=== PATIENT | female | born 1960 | race Caucasian/White ===

== ENCOUNTER 2024-04-27 09:55 | Day surgery (SDC) | payer OTHER ==
[2024-04-24 11:29] LABS: Absolute Basophils 0.1 K/uL (0-0.5); Absolute Eosinophils 0.2 K/uL (0-0.5); Absolute Lymphocytes (CBC) 1.7 K/uL (0.7-4.9); Absolute Monocytes 0.4 K/uL (0.1-1.3); Absolute Neutrophil 2.4 K/uL (1.8-8.0); Basophils % 1.2 % (0-1.3); Hematocrit 43.6 % (36.0-45.0); Lymphocytes % 35.6 % (15.3-44.8); MCH 27.8 pg (27.0-35.0); MCHC 32.1 g/dL (32.0-36.0); MCV 86.8 fL (80-100); MPV 8.5 fL (7.6-11.3); Monocytes % 8.6 % (3.3-12.3); Neutrophils % 50.6 % (41.7-73.7); Nucleated Red Blood Cells % 0.1 % (0-0); Platelets 176 thou/uL (152-406); RBC Red Blood Cell Count 5.02 M/uL (3.86-4.86); Red Cell Distribution Width 13.8 % (12.1-15.2)
[2024-04-24 11:43] LABS: Anion Gap 7.3 mEq/L (5.0-15.0); Potassium 4.3 mEq/L (3.5-5.1)
[2024-04-27] MEDS: Ringers Lactate 1,000 ML IV ONE (10:10)
[2024-04-27] MEDS ORDERED: propofoL 200 MG/20 ML VIAL IV ONE (11:05)
[2024-04-27] MEDS ORDERED: LIDOCAINE 1% MPF 5 ML VIAL ONE (11:05)
[2024-04-27 12:54] VITALS: TEMP 98.8; O2SAT 97
[2024-04-27 12:55] VITALS: BP 104/92
--- NOTE | 2024-04-28 10:09 | EKG ---
Test Date: 2024-04-24 Test Time: 12:11:02 Demand Planner: VANDANA MEASUREMENT RESULTS: Intervals: Rate: 62 OR: 158 QRSD: 74 QT: 414 QTc: 420 Stollings: P: 39 OR: 158 QRS: 0 T: 30 INTERPRETIVE STATEMENTS: Normal sinus rhythm Low voltage QRS Borderline ECG Compared to ECG 03/09/2008 13:31:07 Low QRS voltage now present Electronically Signed On 04-28-24 10:07:06 [employer] BEND[employer] by Lloyd Murray
== END 2024-04-27 12:50 | disposition home or self-care (01) ==
LOC: OR 09:55
PROVIDERS: ATTEND Surgery
PROC: 0DB48ZX Excision of Esophagogastric Junction, Via Natural or Artificial Opening Endoscopic, Diagnostic (ICD-10-PCS; 2024-04-27)
PROC: 0DBN8ZX Excision of Sigmoid Colon, Via Natural or Artificial Opening Endoscopic, Diagnostic (ICD-10-PCS; 2024-04-27)
PROC: 0DB98ZX Excision of Duodenum, Via Natural or Artificial Opening Endoscopic, Diagnostic (ICD-10-PCS; principal; 2024-04-27 12:00)
PROC: 0DB68ZX Excision of Stomach, Via Natural or Artificial Opening Endoscopic, Diagnostic (ICD-10-PCS; 2024-04-27 12:00)
DX: Z12.11 Encounter for screening for malignant neoplasm of colon (principal); R13.10 Dysphagia, unspecified; R11.0 Nausea; K21.9 Gastro-esophageal reflux disease without esophagitis; K64.8 Other hemorrhoids; K44.9 Diaphragmatic hernia without obstruction or gangrene; K29.80 Duodenitis without bleeding; K26.9 Duodenal ulcer, unspecified as acute or chronic, without hemorrhage or perforation
CPT/HCPCS: 43239; 93005; 85025; 80048; 36415; 88312; 88305; 45380; J2704; J2003; J7120